=== PATIENT | female | born 2000 | race Caucasian/White ===

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

== ENCOUNTER 2021-02-01 12:27 | Emergency (ER) | payer OTHER ==
[~2021-02-01] VITALS: Ht 154.9 cm; Wt 50.0 kg
[~2021-02-01 12:27] MED LIST changes: +DOCU-275 PO; +IBUP-2071 PO; -PNV11TAB PO; +PREN-217 PO
[2021-02-01 13:13] VITALS: BP 125/79
== END 2021-02-01 14:35 | disposition home or self-care (01) ==
LOC: EMS 12:28
DX: Z20.822 Contact with and (suspected) exposure to COVID-19 (principal); F12.90 Cannabis use, unspecified, uncomplicated
CPT/HCPCS: 99283; U0003

== ENCOUNTER 2023-10-18 14:33 | Emergency (ER) | payer OTHER ==
[~2023-10-18] VITALS: Ht 152.4 cm; Wt 43.2 kg
[2023-10-18 14:36] VITALS: TEMP 98.5
[2023-10-18 15:23] VITALS: BP 114/69; PULSE 69; RESP 16
[2023-10-18] MEDS ORDERED: CEPH-558 PO (15:50)
[2023-10-18] MEDS: ACETAMINOPHEN 325 MG TABLET PO ONE (16:03)
[2023-10-18] MEDS: CEPHALEXIN MONOHYDRATE 500 MG CAPSULE PO ONE (16:03)
== END 2023-10-18 18:54 | disposition home or self-care (01) ==
LOC: EMS 15:02
DX: N64.4 Mastodynia (principal); F12.90 Cannabis use, unspecified, uncomplicated
CPT/HCPCS: 99283

== ENCOUNTER 2024-02-08 12:26 | Emergency (ER) | payer OTHER ==
[~2024-02-08] VITALS: Ht 152.4 cm; Wt 50.0 kg
[~2024-02-08 12:26] MED LIST changes: +CEPH-558 PO; -DOCU-275 PO; -FERR-89 PO; -IBUP-2071 PO; -PREN-217 PO
[2024-02-08 12:41] VITALS: TEMP 98.1
[2024-02-08] MEDS: ACETAMINOPHEN 500 MG TABLET PO ONE (14:33)
[2024-02-08] MEDS: CEPHALEXIN MONOHYDRATE 500 MG CAPSULE PO ONE (14:33)
[2024-02-08] MEDS: DOXYCYCLINE HYCLATE 100 MG TABLET PO ONE (14:33)
[2024-02-08] MEDS ORDERED: DOXY-354 PO (14:38)
[2024-02-08] MEDS ORDERED: ACET-66 PO (14:38)
[2024-02-08] MEDS ORDERED: CEPH-558 PO (14:38)
[2024-02-08 14:54] VITALS: BP 110/53; PULSE 68; RESP 16
== END 2024-02-08 14:57 | disposition home or self-care (01) ==
LOC: EMS 12:26
DX: L02.01 Cutaneous abscess of face (principal); F12.90 Cannabis use, unspecified, uncomplicated
CPT/HCPCS: 10060; 99284; Z7502; Z7610